=== PATIENT | male | born 1955 | race Caucasian/White ===

== ENCOUNTER → 2016-09-18 | Outpatient (CLI) | payer OTHER ==
[~2016-09-18] MED LIST: ALLOPURINOL300 MG PO; ATENOLOL PO; CHLORTHALIDONE25 MG PO; CIPRO PO; DETROL LA PO; FLOMAX0.4 M1 PO; FLOMAX0.4 MG PO; HYDROCODON-ACE1 EAC4 PO; LEVAQUIN PO; LISINOPRIL10 MG PO; LORTAB 7.5-5001 TAB PO; NORCO 7.5/325 T1 TAB PO; OMEPRAZOLE20 M2 PO; PAXIL; PYRIDIUM PO; VICODIN 5/500 T1 TAB PO; VICODIN PO; VITAMIN D1000 UNI1 PO; XANAX0.5 MG; ZOLPIDEM TARTRA10 MG PO; ZYRTEC PO
--- NOTE | ~2016-09-18 | MR103 ---
[facility] A Service of [facility] & [facility] [place] RADIOLOGY TEXT RESULTS PATIENT: TOPHER RAMOS LOCATION: [facility] : 51 UNIT #: [id number] AGE: [address]: Iggy Lozano MD SEX: M ORDER DR: [id number] [address] [address] [id number] MR#: [id number] Acc #: [id number] NAME: TOPHER RAMOS : 1955 SEX: M STUDY DATE/TIME: 09/18/2016 14:31 UNIT: [facility] ROOM: STUDY DESCRIPTION: MR Knee Wo Contrast Lt Attending Physician: Iggy Lozano M.D. Ordering Physician: Iggy Lozano M.D. Primary Care Physician: Gabe Hartley M.D. MRI CENTER REPORT This report is preliminary unless electronic signature is present. EXAM MRI of the left knee without contrast HISTORY 61-year-old male complains of left knee pain especially when going down steps. Knee feels unstable. COMPARISON Bilateral knee films 09/18/2016, MRI of the left knee 07/24/2006. FINDINGS Multiplanar, multiecho imaging was performed of the left knee utilizing a high field magnet and dedicated protocol. The examination demonstrates a 1.7 cm area of marrow edema, cystic change in the posterior aspect of the tibial eminence near the PCL tibial insertion. This is compatible with enthesopathic marrow change. There is a pericruciate ganglion cyst just posterior to the PCL tibial insertion measuring up to 1.7 cm. In the medial compartment, there is mild truncation and heterogeneous signal of the posterior horn and midbody segment of the medial meniscus but no sizeable tear or displaced meniscal fragment. Medial compartment articular cartilage appears intact. In the lateral compartment, the meniscus appears intact. There is a small focus of moderate to high-grade chondromalacia along the posterior medial aspect of the lateral tibial plateau. In the patellofemoral compartment, there is a small focus of qavy-wz-[id number] grade chondromalacia medial patellar facet measuring about 9 mm. Anterior and posterior cruciate ligaments appear intact. The collateral ligaments and extensor mechanism unremarkable. There is a small STS. [facility] A Service of [facility] & [facility] [place] RADIOLOGY TEXT RESULTS PATIENT: TOPHER RAMOS LOCATION: [facility] : 51 UNIT #: [id number] AGE: [address]: Iggy Lozano MD SEX: M ORDER DR: multiloculated cystic collection extending medial from the GS bursa measuring up to 3.5 cm compatible with a popliteal cyst. IMPRESSION 1. Multifocal chondromalacia as detailed above. 2. 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 3. Small popliteal cyst. Dictated by... Mery Osman M.D. THIS IS AN ELECTRONICALLY VERIFIED REPORT Mery Osman M.D. at 09/20/2016 1:58 PM JOSE/champ TD: 09/19/2016 13:24 JOB #: [id number] MRI CENTER REPORT Page 1 of 1
== END | disposition home or self-care (01) ==
LOC: SMRI 14:03
DX: M25.562 Pain in left knee (principal); M94.262 Chondromalacia, left knee; M23.322 Other meniscus derangements, posterior horn of medial meniscus, left knee; M71.22 Synovial cyst of popliteal space [Baker], left knee
CPT/HCPCS: 73721